=== PATIENT | female | born 1970 | race Caucasian/White ===

== ENCOUNTER 2017-08-14 10:25 | Emergency (ER) | payer OTHER ==
[2017-08-14 10:33] VITALS: BP 127/86; PULSE 88; RESP 16; TEMP 97.9; O2SAT 97
--- NOTE | 2017-08-14 12:57 | C.PDOC ---
History Of Present Illness 47 year old female complains of right elbow pain for 3-4 days. 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 She denies trauma/injury or extremity numbness/weakness. Time Seen by Provider: 08/14/17 11:23 Chief Complaint (Nursing): Upper Extremity Problem/Injury History Per: Patient History/Exam Limitations: no limitations Onset/Duration Of Symptoms: Hrs Current Symptoms Are (Timing): Still Present Quality: "Pain" Additional History Per: Patient Past Medical History Reviewed: Historical Data, Nursing Documentation, Vital Signs Vital Signs: Last Vital Signs Temp 97.9 F 08/14/17 10:32 Pulse 88 08/14/17 10:32 Resp 16 08/14/17 10:32 BP 127/86 08/14/17 10:32 Pulse Ox 97 08/14/17 23:13 - Medical History PMH: HTN Surgical History: No Surg Hx - [facility] Procedures PERCUTAN NEEDLE BIOPSY OF BREAST (12/12/13) Family History: States: Unknown Family Hx - Social History Hx Alcohol Use: No Hx Substance Use: No - Immunization History Hx Tetanus Toxoid Vaccination: No Hx Influenza Vaccination: No Hx Pneumococcal Vaccination: No Review Of Systems Musculoskeletal: Positive for: Other (right elbow) Neurological: Negative for: Weakness, Numbness Physical Exam - Physical Exam Appears: Non-toxic, No Acute Distress Skin: Normal Color, Warm, Dry Extremity: No Normal ROM (decreased, secondary to pain ), Tenderness (right elbow ), Capillary Refill (less than 2 seconds ), No Deformity, No Swelling, No Other (erythema or warmth ) Neurological/Psych: Oriented x3, Normal Speech, Normal Cognition Gait: Steady ED Course And Treatment O2 Sat by Pulse Oximetry: 97 (on RA) Pulse Ox Interpretation: Normal Progress Note: Right elbow XR ordered. Motrin PO administered. On reassessment, patient is resting comfortably, showing no signs of distress and is reports an improvement in pain. Pt is advised to follow up witho PMD/orthopedic care within 1-2 days for further evaluation. Disposition - Disposition Referrals: [facility] [Outside] [facility] [place] [Outside] Disposition: HOME/ ROUTINE Disposition Time: 12:54 Condition: STABLE Additional Instructions: Follow up with PMD/Clinic/Orthopedist within 1-2 days. Return to ED if feel worse. 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 - Scribe Statement The provider has reviewed the documentation as recorded by the Scribe (Tiki Breaux) All medical record entries made by the Scribe were at my direction and personally dictated by me. I have reviewed the chart and agree that the record accurately reflects my personal performance of the history, physical exam, medical decision making, and the department course for this patient. I have also personally directed, reviewed, and agree with the discharge instructions and disposition.
--- NOTE | 2017-08-14 13:24 | RAD ---
PROCEDURE: Radiographs of the right elbow. HISTORY: atraumatic pain COMPARISON: No prior. FINDINGS: BONES: Normal. No fracture. JOINTS: Normal. No osteoarthritis. SOFT TISSUES: There is a 6 x 10 mm calcification adjacent to the medial epicondyles. This most likely represents calcific tendonitis JOINT EFFUSION: None. OTHER FINDINGS: None. IMPRESSION: There is a 6 x 10 mm calcification adjacent to the medial epicondyles. This most likely represents calcific tendonitis
== END 2017-08-14 13:14 | disposition home or self-care (01) ==
LOC: C.ER 10:25
DX: M25.521 Pain in right elbow (principal)